=== PATIENT | female | born 1965 | race African-American/Black ===

== ENCOUNTER 2020-11-26 20:17 | Emergency (ER) | payer OTHER ==
[~2020-11-26] VITALS: Ht 167.6 cm; Wt 136.4 kg
[~2020-11-26 20:17] MED LIST: IBUP-2071 PO
[2020-11-26 21:17] LABS: COVID AG,FIA SOURCE NASAL SWAB
[2020-11-26] MEDS ORDERED: ACETAMINOPHEN 500 MG TABLET PO ONE (22:45)
[2020-11-26] MEDS ORDERED: AZITHROMYCIN 500 MG TABLET PO ONE (22:45)
[2020-11-26 23:26] VITALS: BP 127/74
== END 2020-11-26 23:29 | disposition home or self-care (01) ==
LOC: EMS 20:17
DX: J18.9 Pneumonia, unspecified organism (principal); Z20.822 Contact with and (suspected) exposure to COVID-19
CPT/HCPCS: 71045; 87426; 99284; A9575